=== PATIENT | female | born 1960 | race American Indian/Alaskan Native ===

== ENCOUNTER 2020-04-08 12:41 | Emergency (ER) | payer MEDICAID ==
[2020-04-08] MEDS ORDERED: ACETAMINOPHEN 500 MG TAB PO ONE (17:15)
[2020-04-08] MEDS ORDERED: MAGNESIUM HYDROXIDE (MOM) ORAL LIQD UDC PO ONE (17:15)
--- NOTE | 2020-04-08 17:16 | Emergency Department Report ---
ED Abdominal Pain HPI - General Chief Complaint: Back Pain/Injury Stated Complaint: CANT URINATE Time Seen by Provider: 04/08/20 17:02 Source: patient Mode of arrival: Ambulatory Limitations: No Limitations - History of Present Illness Initial Comments: Chief complaint: My side hurts. My blood pressure has been up." HPI: This is a 59-year-old female with history of hypertension who presents with left lower quadrant abdominal pain and constipation for 1 week. She denies fever. She denies hematuria. She formally was followed at [place]. She is rec ently moved to [facility]. She is currently staying in a motel with her . She does not have a primary physician at this time. She has not taken her blood pressure medicine quite some time. MD Complaint: abdominal pain -: Gradual, week(s) (1) Location: LLQ Severity: mild Quality: aching Improves With: nothing Worsens With: nothing Associated Symptoms: constipation - Related Data Previous Rx's Medication Instructions Recorded Last Taken Type amLODIPine 10 mg PO DAILY #30 tab 04/08/20 Unknown Rx hydroCHLOROthiazide [HCTZ] 25 mg PO QDAY #30 tablet 04/08/20 Unknown Rx Allergies Allergy/AdvReac Type Severity Reaction Status Date / Time No Known Allergies Allergy Unverified 04/08/20 12:49 ED Review of Systems ROS: Stated complaint: CANT URINATE Other details as noted in HPI Comment: All other systems reviewed and negative Constitutional: denies: fever, malaise Gastrointestinal: abdominal pain, constipation. denies: nausea, vomiting ED Past Medical Hx - Past Medical History Previous Medical History?: Yes Hx Hypertension: Yes - Family History Family history: hypertension - Social History Smoking Status: Never Smoker Substance Use Type: None - Medications Home Medications: Home Medications Medication Instructions Recorded Confirmed Last Taken Type amLODIPine 10 mg PO DAILY #30 tab 04/08/20 Unknown Rx hydroCHLOROthiazide [HCTZ] 25 mg PO QDAY #30 tablet 04/08/20 Unknown Rx ED Physical Exam - General Limitations: No Limitations General appearance: alert, in no apparent distress, other (ambulatory without difficulty, while laying on stretcher, legs crossed at ankle) - Head Head exam: Present: atraumatic, normocephalic - Eye Eye exam: Present: normal appearance - ENT ENT exam: Present: mucous membranes moist - Neck Neck exam: Present: normal inspection - Respiratory Respiratory exam: Present: normal lung sounds bilaterally. Absent: respiratory distress - Cardiovascular Cardiovascular Exam: Present: regular rate, normal rhythm, normal heart sounds. Absent: systolic murmur, diastolic murmur, rubs, gallop - GI/Abdominal GI/Abdominal exam: Present: soft, normal bowel sounds. Absent: distended, tenderness, guarding, rebound - Extremities Exam Extremities exam: Present: normal inspection, full ROM - Neurological Exam Neurological exam: Present: alert, oriented X3 - Psychiatric Psychiatric exam: Present: normal affect, normal mood - Skin Skin exam: Present: warm, dry, intact, normal color. Absent: rash ED Course Vital Signs 04/08/20 04/08/20 04/08/20 12:49 17:11 17:16 Temperature 98.3 F Pulse Rate 80 Respiratory 16 Rate Blood Pressure 220/121 Blood Pressure 191/119 [Right] O2 Sat by Pulse 94 97 97 Oximetry 04/08/20 17:22 Temperature Pulse Rate Respiratory 18 Rate Blood Pressure Blood Pressure [Right] O2 Sat by Pulse 98 Oximetry ED Medical Decision Making - Lab Data Result diagrams: 04/08/20 17:51 04/08/20 17:51 - Radiology Data Radiology results: report reviewed CT ABDOMEN AND PELVIS WITHOUT CONTRAST INDICATION / CLINICAL INFORMATION: llq pain. TECHNIQUE: Axial CT images were obtained through the abdomen and pelvis without IV contrast. All CT scans at this location are performed using CT dose reduction for ALARA by means of automated exposure control. COMPARISON: None available. FINDINGS: LOWER CHEST: 1 cm of calcified granuloma right lung base. 8 mm noncalcified soft tissue density nodule in the periphery of the right lower lobe (series 2 image 14). LIVER: No significant abnormality. GALLBLADDER: Cholecystectomy. BILE DUCTS: No significant abnormality. PANCREAS: No significant abnormality. SPLEEN: No significant abnormality. ADRENALS: No significant abnormality. RIGHT KIDNEY / URETER: No significant abnormality. LEFT KIDNEY / URETER: No significant abnormality. STOMACH / SMALL BOWEL: No significant abnormality. COLON: No significant abnormality. APPENDIX: No significant abnormality. PERITONEUM: No free fluid. No free air. No fluid collection. LYMPH NODES: No significant adenopathy. AORTA / ARTERIES: Scattered calcifications are noted of the aorta and its branch vessels. IVC / VEINS: No significant abnormality. URINARY BLADDER: Distended urinary bladder. REPRODUCTIVE ORGANS: No significant abnormality. ADDITIONAL FINDINGS: None. SKELETAL SYSTEM: No significant abnormality. IMPRESSION: 1. No significant acute abnormality of the abdomen or pelvis. 2. 8 mm noncalcified soft tissue density nodule in the periphery of the right lower lobe needs follow-up CT. 3. Cholecystectomy. INCIDENTAL PULMONARY NODULE RECOMMENDATIONS Nodule size* 4 mm * Low-Risk Patient: no follow-up needed * High-Risk Patient: follow-up at 12 months; if unchanged, no further follow-up Nodule size >4-6 mm * Low-Risk Patient: follow-up at CT at 12 months; if unchanged, no further follow-up * High-Risk Patient: initial follow-up CT at 6-12 months, then at 18-24 months if no change Nodule size >6-8 mm * Low-Risk Patient: initial follow-up CT at 6-12 months, then at 18-24 months if no change * High risk Patient: initial follow-up CT at 3-6 months, then at 9-12 and 24 months if no change Nodule size >8 mm * Same for Low- or High-Risk Patient: follow-up CT at around 3, 9, and 24 months, dynamic contrast enhanced CT, PET, and/or biopsy Note Newly detected indeterminate nodule in persons 35 years of age or older. Persons under the age of 35 should not receive follow-up unless there is a known primary cancer. Low-Risk Patient - minimal or absent history of smoking and of other known risk factors. High-Risk Patient - history of smoking or of other known risk factors. * Average of length and width The risk of malignancy in this category (<1%) is substantially less than that in a baseline CT scan of an asymptomatic smoker. Nonsolid (ground-glass) or partly solid nodules may require longer follow-up to exclude indolent Adenocarcinoma. - Medical Decision Making 1. LLQ pain for one week likely due to constipation, no fever or tenderness to indicate inflammatory or obstructive process. CT abdomen pelvis negative for acute anterior abdominal or pelvic pathology. Patient has lung nodule which will need outpatient follow-up patient patient is aware of this diagnosis. Differential diagnosis considered diverticulitis, renal colic, bowel obstruction 2. Hypertensive urgency due to noncompliance. I have prescribed amlodipine hydrochlorothiazide. CBC chemistry within normal limits. Patient informed triage nurse that she was unable to urinate or defecate. However she both urinated and defecated today according to her report. She appears well. She appears comfortable. She is discharged home in stable good condition. Vital Signs - 24 hr 04/08/20 04/08/20 04/08/20 12:49 17:11 17:16 Temperature 98.3 F Pulse Rate 80 Respiratory 16 Rate Blood Pressure 220/121 Blood Pressure 191/119 [Right] O2 Sat by Pulse 94 97 97 Oximetry 04/08/20 04/08/20 04/08/20 17:22 17:30 17:46 Temperature Pulse Rate Respiratory 18 Rate Blood Pressure 220/121 220/121 Blood Pressure [Right] O2 Sat by Pulse 98 99 99 Oximetry 04/08/20 04/08/20 04/08/20 18:00 18:16 18:30 Temperature Pulse Rate Respiratory Rate Blood Pressure 229/131 220/121 220/121 Blood Pressure [Right] O2 Sat by Pulse 97 98 97 Oximetry Critical care attestation.: If time is entered above; I have spent that time in minutes in the direct care of this critically ill patient, excluding procedure time. ED Disposition Clinical Impression: Left lower quadrant abdominal pain, Hypertensive urgency, Lung nodule Disposition: - TO HOME OR SELFCARE Is pt being admited?: No Does the pt Need Aspirin: No Condition: Stable Instructions: Hypertension (ED), Pulmonary Nodules (ED) Prescriptions: amLODIPine 10 mg PO DAILY #30 tab hydroCHLOROthiazide [HCTZ] 25 mg PO QDAY #30 tablet Referrals: RITA CHOU MD [Staff Physician] - 3-5 Days
--- NOTE | 2020-04-08 17:48 | Cat Scan Report ---
CT ABDOMEN AND PELVIS WITHOUT CONTRAST INDICATION / CLINICAL INFORMATION: llq pain. TECHNIQUE: Axial CT images were obtained through the abdomen and pelvis without IV contrast. All CT scans at [facility] are performed using CT dose reduction for ALARA by means of automated exposure control. COMPARISON: None available. FINDINGS: LOWER CHEST: 1 cm of calcified granuloma right lung base. 8 mm noncalcified soft tissue density nodul e in the periphery of the right lower lobe (series 2 image 14). LIVER: No significant abnormality. GALLBLADDER: Cholecystectomy. BILE DUCTS: No significant abnormality. PANCREAS: No significant abnormality. SPLEEN: No significant abnormality. ADRENALS: No significant abnormality. RIGHT KIDNEY / URETER: No significant abnormality. LEFT KIDNEY / URETER: No significant abnormality. STOMACH / SMALL BOWEL: No significant abnormality. COLON: No significant abnormality. APPENDIX: No significant abnormality. PERITONEUM: No free fluid. No free air. No fluid collection. LYMPH NODES: No significant adenopathy. AORTA / ARTERIES: Scattered calcifications are noted of the aorta and its branch vessels. IVC / VEINS: No significant abnormality. URINARY BLADDER: Distended urinary bladder. REPRODUCTIVE ORGANS: No significant abnormality. ADDITIONAL FINDINGS: None. SKELETAL SYSTEM: No significant abnormality. IMPRESSION: 1. No significant acute abnormality of the abdomen or pelvis. 2. 8 mm noncalcified soft tissue density nodule in the periphery of the right lower lobe needs follow -up CT. 3. Cholecystectomy. INCIDENTAL PULMONARY NODULE RECOMMENDATIONS Nodule size* 4 mm * Low-Risk Patient: no follow-up needed * High-Risk Patient: follow-up at 12 months; if unchanged, no further follow-up Nodule size >4-6 mm * Low-Risk Patient: follow-up at CT at 12 months; if unchanged, no further follow-up * High-Risk Patient: initial follow-up CT at 6-12 months, then at 18-24 months if no change Nodule size >6-8 mm * Low-Risk Patient: initial follow-up CT at 6-12 months, then at 18-24 months if no change * High risk Patient: initial follow-up CT at 3-6 months, then at 9-12 and 24 months if no change Nodule size >8 mm * Same for Low- or High-Risk Patient: follow-up CT at around 3, 9, and 24 months, dynamic contrast e nhanced CT, PET, and/or biopsy Note Newly detected indeterminate nodule in persons 35 years of age or older. Persons under the age of 35 should not receive follow-up unless there is a known primary cancer. Low-Risk Patient - minimal or absent history of smoking and of other known risk factors. High-Risk Patient - history of smoking or of other known risk factors. * Average of length and width The risk of malignancy in this category (<1%) is substantially less than that in a baseline CT scan of an asymptomatic smoker. Nonsolid (ground-glass) or partly solid nodules may require longer follow-up to exclude indolent Monica nocarcinoma. Signer Name: Jeison Ascencio MD Signed: 04/08/2020 5:43 PM Workstation Name: [id number]
[2020-04-08 18:14] LABS: Basophils # (Auto) 0.1 K/mm3 (0.0-0.1); Basophils % (Auto) 0.6 % (0.0-1.8); Eosinophils # (Auto) 0.2 K/mm3 (0.0-0.4); Eosinophils % (Auto) 1.9 % (0.0-4.3); Hematocrit 39.9 % (30.3-42.9); Hemoglobin 13.3 gm/dl (10.1-14.3); Lymphocytes # (Auto) 2.7 K/mm3 (1.2-5.4); Lymphocytes % (Auto) 24.9 % (13.4-35.0); Mean Corpuscular HGB Conc 33 % (30-34); Mean Corpuscular Volume 94 fl (79-97); Monocytes # (Auto) 0.6 K/mm3 (0.0-0.8); Platelet Count 293 K/mm3 (140-440); Red Blood Count 4.25 M/mm3 (3.65-5.03)
[2020-04-08 18:28] LABS: Blood Urea Nitrogen 15 mg/dL (7-17); Calcium 9.7 mg/dL (8.4-10.2); Hemolysis Index 102
[2020-04-08 18:32] LABS: BUN/Creatinine Ratio 21
[2020-04-08] MEDS ORDERED: cloNIDine 0.2 MG TAB PO ONE (18:45)
[2020-04-08 19:30] VITALS: BP 178/135
== END 2020-04-08 19:40 | disposition home or self-care (01) ==
LOC: ED 12:41
DX: R10.32 Left lower quadrant pain (principal); K59.00 Constipation, unspecified; I16.0 Hypertensive urgency; R91.1 Solitary pulmonary nodule
CPT/HCPCS: 36415; 74176; 80048; 85025